=== PATIENT | female | born 1995 | race Hispanic/Latino ===

== ENCOUNTER 2018-02-26 07:20 | Emergency (ER) | payer MEDICAID, OTHER ==
[~2018-02-26 07:20] MED LIST: PNV1TABL62 PO
[2018-02-26 07:41] LABS: APPEARANCE,URINE Clear (CLEAR); BILIRUBIN,URINE Negative (NEGATIVE); COLOR,URINE Yellow (YELLOW); GLUCOSE, URINE (UA) Negative (NEGATIVE); KETONES,URINE Negative (NEGATIVE); LEUKOCYTE ESTERASE ,URINE Trace (NEGATIVE); NITRATE,URINE Negative (NEGATIVE); OCCULT BLOOD,URINE Negative (NEGATIVE); PH,URINE 5.5 (5.0-8.0); PROTEIN,URINE Negative (NEGATIVE); UROBILINOGEN,URINE 0.2 mg/dL (0.2-1.0)
[2018-02-26 07:44] LABS: HCG,QUAL RESULT POSITIVE (NEGATIVE)
[2018-02-26 07:45] LABS: BACTERIA,URINE Rare /HPF (None Seen); RBC,URINE 0-1 /HPF (0-1); SQUAMOUS EPITHELIAL CELL,UR Rare /HPF (0-2); WBC,URINE 0-1 /HPF (0-1)
[2018-02-26 08:19] LABS: BASOPHILS % (AUTO) 0.9 % (0.0-5.0); EOSINOPHILS % (AUTO) 1.4 % (0.0-8.0); HEMATOCRIT 38.3 % (36-48); LYMPHOCYTES % (AUTO) 20.1 % (21.0-51.0); MEAN CORPUSCULAR HEMOGLOBIN 29.3 pg (27.0-33.0); MEAN CORPUSCULAR HGB CONC 33.3 g/dL (32.0-36.0); MEAN CORPUSCULAR VOLUME 88.1 fL (80-100); MONOCYTES % (AUTO) 9.8 % (3.0-13.0); NEUTROPHILS % (AUTO) 67.8 % (40.0-77.0); PLATELET COUNT (AUTO) 216 K/uL (130-400); RED BLOOD CELL COUNT(AUTO) 4.35 MIL/uL (4.00-5.50); RED CELL DISTRIBUTION WIDTH 16.5 % (11.0-15.5); WHITE BLOOD COUNT (AUTO) 6.4 K/uL (4.8-10.8)
[2018-02-26 08:31] LABS: CREATININE 0.7 mg/dL (0.5-1.5); POTASSIUM 3.7 mmol/L (3.5-5.1)
[2018-02-26] MEDS ORDERED: DICYCLOMINE HCL 10 MG/ML 2ML AMP IM ONE (08:55)
[2018-02-26] MEDS ORDERED: FAMOTIDINE 20MG TAB 20 MG TAB ONE (08:55)
[2018-02-26 08:56] LABS: ALBUMIN 3.7 g/dL (3.5-5.0); BILIRUBIN,TOTAL 0.2 mg/dL (0.2-1.0); TOTAL PROTEIN, SERUM 7.4 g/dL (6.0-8.3)
== END 2018-02-26 10:04 | disposition home or self-care (01) ==
LOC: EDH 07:20
DX: O26.891 Other specified pregnancy related conditions, first trimester (principal); R10.13 Epigastric pain; R10.32 Left lower quadrant pain; Z3A.01 Less than 8 weeks gestation of pregnancy
CPT/HCPCS: 36415; 76705; 76801; 80053; 81001; 81025; 83690; 84702; 85025; 86900; 86901; 96372; 99285; J0500

== ENCOUNTER 2018-09-13 05:09 | Observation (INO) | payer MEDICAID ==
[~2018-09-13] VITALS: Ht 165.1 cm; Wt 61.2 kg
[2018-09-13] MEDS ORDERED: LACTATED RINGERS 1000ML 1,000 ML IV PRN (05:30)
[2018-09-13 05:48] LABS: APPEARANCE,URINE Cloudy (CLEAR); BILIRUBIN,URINE Negative (NEGATIVE); COLOR,URINE Yellow (YELLOW); GLUCOSE, URINE (UA) Negative (NEGATIVE); KETONES,URINE Negative (NEGATIVE); LEUKOCYTE ESTERASE ,URINE Large (NEGATIVE); NITRATE,URINE Negative (NEGATIVE); OCCULT BLOOD,URINE Negative (NEGATIVE); PROTEIN,URINE Negative (NEGATIVE)
[2018-09-13 05:56] LABS: AMPHET/METH SCREEN,URINE NEGATIVE (NEGATIVE); BARBITURATE SCREEN, URINE NEGATIVE (NEGATIVE); BENZODIAZEPINES SCREEN,URINE NEGATIVE (NEGATIVE); CANNABINOID SCREEN,URINE NEGATIVE (NEGATIVE); COCAINE SCREEN,URINE NEGATIVE (NEGATIVE); OPIATE SCREEN,URINE NEGATIVE (NEGATIVE); PHENCYCLIDINE SCREEN,URINE NEGATIVE (NEGATIVE)
[2018-09-13 05:58] LABS: BACTERIA,URINE Few /HPF (None Seen); RBC,URINE 0-1 /HPF (0-1)
[2018-09-13] MEDS ORDERED: ONDANSETRON HCL MDV 20ML 2 MG/ML VIAL IVP SCH (06:15)
[2018-09-13] MEDS ORDERED: PROMETHAZINE HCL 25 MG/ML 1ML AMPULE IM SCH (06:15)
[2018-09-13] MEDS ORDERED: ONDANSETRON HCL 4 MG/2 ML VIAL IVP SCH (06:30)
== END 2018-09-13 07:45 | disposition home or self-care (01) ==
LOC: EDH 05:09 → LDH 05:10
PROVIDERS: ADMIT Specialist; ATTEND Specialist
DX: O21.2 Late vomiting of pregnancy (principal); O26.893 Other specified pregnancy related conditions, third trimester; R19.7 Diarrhea, unspecified; R10.9 Unspecified abdominal pain; O99.323 Drug use complicating pregnancy, third trimester; F12.10 Cannabis abuse, uncomplicated; O99.343 Other mental disorders complicating pregnancy, third trimester; F41.9 Anxiety disorder, unspecified; Z87.891 Personal history of nicotine dependence; Z79.899 Other long term (current) drug therapy; Z3A.33 33 weeks gestation of pregnancy
CPT/HCPCS: 80305; 81001; 96361; 96374; 96375; 99285; G0378 ×3; J2405; J2550; J7120 ×2; 96360

== ENCOUNTER 2021-07-29 12:58 | Emergency (ER) | payer MEDICAID, OTHER ==
[~2021-07-29] VITALS: Ht 165.1 cm; Wt 52.2 kg
[2021-07-29] MEDS ORDERED: CEPH500B PO (15:22)
[2021-07-29] MEDS ORDERED: SULF1TAB42 PO (15:22)
[2021-07-29 15:24] VITALS: BP 145/74
== END 2021-07-29 16:11 | disposition home or self-care (01) ==
LOC: EDH 12:58
DX: N61.0 Mastitis without abscess (principal)

== ENCOUNTER 2024-01-13 18:56 | Emergency (ER) | payer OTHER ==
[~2024-01-13] VITALS: Ht 165.1 cm; Wt 52.6 kg
[~2024-01-13 18:56] MED LIST changes: +CEPH500B PO; +SULF1TAB42 PO
[2024-01-13 19:40] LABS: APPEARANCE,URINE CLEAR (CLEAR); BILIRUBIN,URINE NEGATIVE (NEGATIVE); COLOR,URINE LIGHT-YELLOW (YELLOW); GLUCOSE, URINE (UA) NEGATIVE (NEGATIVE); KETONES,URINE NEGATIVE (NEGATIVE); LEUKOCYTE ESTERASE ,URINE NEGATIVE Leu/uL (NEGATIVE); NITRATE,URINE NEGATIVE (NEGATIVE); PROTEIN,URINE NEGATIVE (NEGATIVE); UROBILINOGEN,URINE 0.2 mg/dL (0.2-1.0)
[2024-01-13 19:44] LABS: ADD UA MICROSCOPIC YES
[2024-01-13 19:45] LABS: MUCUS,URINE RARE LPF (None Seen); SQUAMOUS EPITHELIAL CELL,UR RARE /HPF (0-2); WBC,URINE 0-1 /HPF (0-1)
[2024-01-13 19:52] LABS: RAPID GROUP A STREP negative (NEGATIVE)
[2024-01-13 19:54] LABS: SARS-CoV-2, RNA, NAAT NEGATIVE SARS CoV-2 (NEGATIVE)
[2024-01-13 19:59] LABS: INFLUENZA TYPE A Negative For Type A (NEGATIVE); INFLUENZA TYPE B Negative For Type B (NEGATIVE)
[2024-01-13 21:40] LABS: BASOPHILS # (AUTO) 0.03 K/uL (0.00-0.20); BASOPHILS % (AUTO) 0.5 % (0.0-5.0); EOSINOPHILS # (AUTO) 0.06 K/uL (0.00-0.70); EOSINOPHILS % (AUTO) 1.1 % (0.0-8.0); HEMATOCRIT 40.9 % (36-48); IMMATURE GRANULOCYTE ABSOLUTE 0.02 K/uL (0-1); LYMPHOCYTES # (AUTO) 1.6 K/uL (1.0-4.8); LYMPHOCYTES % (AUTO) 27.6 % (21.0-51.0); MEAN CORPUSCULAR HEMOGLOBIN 31.2 pg (27.0-33.0); MEAN CORPUSCULAR HGB CONC 34.7 g/dL (32.0-36.0); MEAN CORPUSCULAR VOLUME 89.9 fL (79-99); MONOCYTES # (AUTO) 0.5 K/uL (0.1-1.0); MONOCYTES % (AUTO) 8.4 % (3.0-13.0); NEUTROPHILS # (AUTO) 3.5 K/uL (1.8-7.7); PLATELET COUNT (AUTO) 198 K/uL (130-400); RED BLOOD CELL COUNT(AUTO) 4.55 MIL/uL (4.00-5.50); RED CELL DISTRIBUTION WIDTH 13.6 % (11.0-15.5); WHITE BLOOD COUNT (AUTO) 5.7 K/uL (4.8-10.8)
[2024-01-13 21:52] LABS: CREATININE 0.9 mg/dL (0.5-1.5); POTASSIUM 3.2 mmol/L (3.5-5.1)
[2024-01-13 21:56] LABS: ALBUMIN 4.2 g/dL (3.5-5.0); BILIRUBIN,TOTAL 0.4 mg/dL (0.2-1.0); TOTAL PROTEIN, SERUM 8.2 g/dL (6.0-8.3)
[2024-01-13] MEDS: POTASSIUM BICARB/CIT AC 25 MEQ TABLET.EFF PO ONE (22:30)
[2024-01-14] MEDS ORDERED: OMEP40CA21 PO (02:18)
[2024-01-14] MEDS ORDERED: ONDA-104 PO (02:18)
[2024-01-14] MEDS ORDERED: IBUP-1493 PO (02:18)
[2024-01-14] MEDS ORDERED: AMOX1TAB16 PO (02:18)
[2024-01-14 02:50] VITALS: BP 128/74; PULSE 88; RESP 18; O2SAT 98
== END 2024-01-14 02:51 | disposition home or self-care (01) ==
LOC: EDH 18:56
DX: K04.7 Periapical abscess without sinus (principal); R10.13 Epigastric pain; Z79.899 Other long term (current) drug therapy; Z20.822 Contact with and (suspected) exposure to COVID-19
CPT/HCPCS: 36415; 80053; 81001; 81025; 83690; 85025; 87635; 87804; 87880

== ENCOUNTER 2024-01-16 16:02 | Emergency (ER) | payer OTHER ==
[~2024-01-16] VITALS: Ht 165.1 cm; Wt 52.6 kg
[~2024-01-16 16:02] MED LIST changes: +AMOX1TAB16 PO; -CEPH500B PO; +IBUP-1493 PO; +OMEP40CA21 PO; +ONDA-104 PO; -SULF1TAB42 PO
[2024-01-16 16:22] VITALS: BP 104/86; PULSE 85; RESP 17; O2SAT 100
[2024-01-16 17:53] LABS: BASOPHILS # (AUTO) 0.03 K/uL (0.00-0.20); BASOPHILS % (AUTO) 0.6 % (0.0-5.0); EOSINOPHILS # (AUTO) 0.02 K/uL (0.00-0.70); EOSINOPHILS % (AUTO) 0.4 % (0.0-8.0); HEMATOCRIT 41.1 % (36-48); IMMATURE GRANULOCYTE ABSOLUTE 0.01 K/uL (0-1); LYMPHOCYTES # (AUTO) 1.6 K/uL (1.0-4.8); LYMPHOCYTES % (AUTO) 31.2 % (21.0-51.0); MEAN CORPUSCULAR HEMOGLOBIN 31.5 pg (27.0-33.0); MEAN CORPUSCULAR HGB CONC 34.3 g/dL (32.0-36.0); MEAN CORPUSCULAR VOLUME 91.7 fL (79-99); MONOCYTES # (AUTO) 0.5 K/uL (0.1-1.0); MONOCYTES % (AUTO) 10.1 % (3.0-13.0); NEUTROPHILS # (AUTO) 2.9 K/uL (1.8-7.7); NEUTROPHILS % (AUTO) 57.5 % (40.0-77.0); PLATELET COUNT (AUTO) 197 K/uL (130-400); RED BLOOD CELL COUNT(AUTO) 4.48 MIL/uL (4.00-5.50); RED CELL DISTRIBUTION WIDTH 13.3 % (11.0-15.5); WHITE BLOOD COUNT (AUTO) 5.1 K/uL (4.8-10.8)
[2024-01-16 18:00] LABS: APPEARANCE,URINE CLEAR (CLEAR); BILIRUBIN,URINE NEGATIVE (NEGATIVE); COLOR,URINE LIGHT-YELLOW (YELLOW); GLUCOSE, URINE (UA) NEGATIVE (NEGATIVE); KETONES,URINE NEGATIVE (NEGATIVE); LEUKOCYTE ESTERASE ,URINE NEGATIVE Leu/uL (NEGATIVE); NITRATE,URINE NEGATIVE (NEGATIVE); OCCULT BLOOD,URINE MODERATE (NEGATIVE); PH,URINE 5.5 (5.0-8.0); PROTEIN,URINE NEGATIVE (NEGATIVE); UROBILINOGEN,URINE 0.2 mg/dL (0.2-1.0)
[2024-01-16 18:01] LABS: ADD UA MICROSCOPIC YES
[2024-01-16 18:05] LABS: CREATININE 0.8 mg/dL (0.5-1.5); POTASSIUM 3.3 mmol/L (3.5-5.1)
[2024-01-16 18:07] LABS: AMPHET/METH SCREEN,URINE NEGATIVE (NEGATIVE); BARBITURATE SCREEN, URINE NEGATIVE (NEGATIVE); BENZODIAZEPINES SCREEN,URINE NEGATIVE (NEGATIVE); CANNABINOID SCREEN,URINE POSITIVE (NEGATIVE); COCAINE SCREEN,URINE NEGATIVE (NEGATIVE); OPIATE SCREEN,URINE NEGATIVE (NEGATIVE); PHENCYCLIDINE SCREEN,URINE NEGATIVE (NEGATIVE)
[2024-01-16 18:09] LABS: ALBUMIN 4.2 g/dL (3.5-5.0); BILIRUBIN,TOTAL 0.3 mg/dL (0.2-1.0)
[2024-01-16 18:12] LABS: MUCUS,URINE RARE LPF (None Seen); SQUAMOUS EPITHELIAL CELL,UR RARE /HPF (0-2)
== END 2024-01-16 20:31 | disposition home or self-care (01) ==
LOC: EDH 16:02
DX: R07.89 Other chest pain (principal); F41.9 Anxiety disorder, unspecified; F12.90 Cannabis use, unspecified, uncomplicated; Z79.899 Other long term (current) drug therapy; Z98.890 Other specified postprocedural states
CPT/HCPCS: 36415; 71045; 80053; 80305; 81001; 84484; 84703; 85025; 93005

== ENCOUNTER 2024-11-26 14:50 | Emergency (ER) | payer OTHER ==
[~2024-11-26] VITALS: Ht 165.1 cm; Wt 68.0 kg
[2024-11-26] MEDS: 0.9%NACL 1000ML 1,000 ML IV ONE (15:53)
[2024-11-26] MEDS: metoCLOPRAmide 10 MG/2 ML VIAL IVP ONE (15:53)
[2024-11-26] MEDS: ketOROlac 15MG/ML VIAL (15MG/ML) IV ONE (15:54)
[2024-11-26] MEDS: MAG/ALUM/SIMETH 30 ML UDCUP PO ONE (15:54)
--- NOTE | 2024-11-26 16:01 | NUR ---
SONO: SONO TECH JUST ARRIVED TO BEDSIDE FOR RUQ SONO
--- NOTE | 2024-11-26 16:13 | NUR ---
TAKING OVER PT CARE AT THIS TIME.
--- NOTE | 2024-11-26 16:28 | HMCIMG ---
ULTRASOUND ABDOMEN LIMITED INDICATION: Abdominal pain; No other relevant information related to this study was provided in patient's history by the ordering service. COMPARISON: None FINDINGS: The liver is normal in size and echogenicity; no focal lesion demonstrated. Main portal vein is patent, and normal direction of vascular flow demonstrated. The common bile duct diameter measures 3.0 mm. No evidence for calculi, sludge or pericholecystic fluid. No sonographic Rosa's sign elicited by the ultrasound metal drill operator. Wall thickness measures 2.0 mm. Visible portions of the pancreas appear normal. The right kidney measures 9.6 x 3.5 x 3.8 cm,and is normal in echogenicity, without evidence for hydronephrosis.No shadowing stones demonstrated. Miniscule echogenic focus demonstrated at the lower pole of the right kidney. No free fluid demonstrated. IMPRESSION: Suspect miniscule nonobstructing right renal stone. Otherwise, no acute process.
[2024-11-26 17:04] LABS: BASOPHILS # (AUTO) 0.03 K/uL (0.00-0.20); BASOPHILS % (AUTO) 0.4 % (0.0-5.0); HEMATOCRIT 35.2 % (36-48); IMMATURE GRANULOCYTE ABSOLUTE 0.03 K/uL (0-1); LYMPHOCYTES # (AUTO) 0.7 K/uL (1.0-4.8); LYMPHOCYTES % (AUTO) 9.4 % (21.0-51.0); MEAN CORPUSCULAR HEMOGLOBIN 29.8 pg (27.0-33.0); MEAN CORPUSCULAR HGB CONC 33.2 g/dL (32.0-36.0); MEAN CORPUSCULAR VOLUME 89.8 fL (79-99); MONOCYTES # (AUTO) 0.3 K/uL (0.1-1.0); MONOCYTES % (AUTO) 3.6 % (3.0-13.0); NEUTROPHILS # (AUTO) 6.7 K/uL (1.8-7.7); NEUTROPHILS % (AUTO) 86.2 % (40.0-77.0); PLATELET COUNT (AUTO) 203 K/uL (130-400); RED BLOOD CELL COUNT(AUTO) 3.92 MIL/uL (4.00-5.50); RED CELL DISTRIBUTION WIDTH 15.4 % (11.0-15.5); WHITE BLOOD COUNT (AUTO) 7.8 K/uL (4.8-10.8)
[2024-11-26 17:15] LABS: CREATININE 0.7 mg/dL (0.5-1.0); POTASSIUM 3.8 mmol/L (3.5-5.1)
[2024-11-26 17:19] LABS: ALBUMIN 3.5 g/dL (3.5-5.0); BILIRUBIN,DIRECT 0.1 mg/dL (0.0-0.3); BILIRUBIN,TOTAL 0.4 mg/dL (0.2-1.0); TOTAL PROTEIN, SERUM 6.8 g/dL (6.0-8.3)
--- NOTE | 2024-11-26 17:37 | NUR ---
URINE SENT AGAIN.
[2024-11-26 17:46] LABS: ADD UA MICROSCOPIC YES; APPEARANCE,URINE CLEAR (CLEAR); BILIRUBIN,URINE NEGATIVE (NEGATIVE); COLOR,URINE YELLOW (YELLOW); GLUCOSE, URINE (UA) NEGATIVE (NEGATIVE); KETONES,URINE 150 mg/dL (NEGATIVE); LEUKOCYTE ESTERASE ,URINE NEGATIVE Leu/uL (NEGATIVE); NITRATE,URINE NEGATIVE (NEGATIVE); OCCULT BLOOD,URINE NEGATIVE (NEGATIVE); PROTEIN,URINE 30 mg/dL (NEGATIVE)
[2024-11-26] MEDS ORDERED: ONDA-243 PO (17:46)
--- NOTE | 2024-11-26 17:48 | ERN ---
General Chief Complaint: Nausea,Vomiting,Diarrhea Stated Complaint: THROWING UP ALOT,DIZZINESS Time Seen by MD: 14:51 History of Present Illness Initial Comments 29-year-old female, otherwise healthy, denies , presents for vomiting and epigastric pain. Patient reports that for the last week or so she has been feeling on and off pains in the epigastric area, she thinks it is more of the right than to the left. Nonradiating. He has had decreased appetite. She has felt bloated. No vomiting or diarrhea before. Last night she drank very heavily, much alcohol. This morning she reports that the pain is worse and she persistently vomits. She reports that she does not think she is simply hung over and is worried that something else is wrong in her abdomen. Allergies: Coded Allergies: No Known Drug Allergies (Unverified Allergy, Unknown, 11/23/16) Home Meds Active Scripts Ondansetron HCl (Ondansetron HCl) 4 Mg Tablet, 4 MG PO TIDP PRN for VOMITING, #20 TAB Prov:KARYN SANDERS MD 01/14/24 Amoxicillin/Potassium Clav (Amox Tr-K Clv 875-125 mg Tab) 875 Mg-125 Mg Tablet, 1 EACH PO BID, #20 TAB Prov:KARYN SANDERS MD 01/14/24 Omeprazole (Omeprazole) 40 Mg Capsule.dr, 40 MG PO DAILY, #30 CAP Prov:KARYN SANDERS MD 01/14/24 Ibuprofen (Motrin/Advil) 800 Mg Tab, 800 MG PO TID, #30 TAB Prov:KARYN SANDERS MD 01/14/24 Reported Medications Pnv with Ca,No.72/Iron/FA ( Vitamin with Low Iron) 1 Each Tablet, 1 EACH PO DAILY, TAB 11/23/16 Past Medical History Past Medical History: No Pertinent History Past Surgical History: None Family History Family History: Negative Social History Social History: Negative, Lives with family Female( History) History: Not Applicable LMP: Nov 21, 2024 ROS Dictation CONSTITUTIONAL: No chills, no fever, no weakness, no diaphoresis, no malaise. HEAD/FACE: No signs of trauma. EENT: No eye pain, no blurred vision, no tearing, no double vision, no ear pain, no ear discharge, no nose pain, no nasal congestion, no throat pain, no throat swelling, no mouth pain. RESPIRATORY: No cough, no orthopnea, no SOB, no stridor, no wheezing. CARDIOVASCULAR: No chest pain, no edema, no palpitations, no syncope. GASTROINTESTINAL/ABDOMINAL: Abdominal pain and vomiting GENITOURINARY: No abnormal discharge, no dysuria, no frequent urination, no hematuria. No complaints of pain in the genitals. MUSCULOSKELETAL: No back pain, no gout, no joint pain, no joint swelling, no muscle pain, no muscle stiffness, no neck pain. INTEGUMENTARY: No change in color, no change in hair/nails, no dryness, no lesion, no lumps, no rash. NEUROLOGICAL/PSYCH: No anxiety, not depressed, no emotional problem, no headache, no numbness, no pre-existing deficit, no history of seizures, no tremors, no weakness. HEMATOLOGIC/LYMPHATIC: Not anemic, no history of blood clots, no apparent bleeding, no bruising, glands not swollen. All Systems Negative, Except as Noted. Physical Exam Physical Exam Dictation VITAL SIGNS: Reviewed. GENERAL APPEARANCE: Alert, oriented x3, no acute distress. HEAD AND FACE: Non-traumatic. EYES: PERRL, pink conjunctivas, eyelid no trauma, anterior chamber clear. EARS: Pinnas intact and no signs of trauma or erythema. Ear canals clear and no discharge. TMs no erythema. NOSE: No discharge, no bleeding. OROPHARYNX: Mouth normal, teeth no caries, tongue pink. Pharynx clear, no erythema. Tonsils no exudates, no abscesses noted. Mucous membrane moist. NECK: Supple, non-tender, no thyromegaly, no masses, no JVD, no bruits. BREAST: Deferred. CHEST: No tenderness, no crepitus, no paradoxical movement, no retractions. LUNGS: Clear, well-ventilated, symmetric, no rales, no wheezing, no rhonchi, no stridor, good breath sounds bilaterally. HEART: Regular rate, regular rhythm, no murmur, no gallops. VASCULAR: No peripheral edema. ABDOMEN: Abdomen is soft nontender nondistended. RECTAL: Deferred. GENITAL: Deferred. NEUROLOGICAL: Normal speech, gross motor function intact, gross sensory function intact. MUSCULOSKELETAL: Neck nontender, full range of motion, back nontender, full range of motion. EXTREMITIES: Nontender, full range of motion. SKIN: Color pink, dry, no turgor, no rash, no lacerations, no abrasions, no co ntusions. LYMPHATICS: Deferred. Results Laboratory and Microbiology Lab and Micro Result Laboratory Tests Test 11/26/24 16:53 White Blood Count 7.8 K/uL (4.8-10.8) Red Blood Count 3.92 MIL/uL (4.00-5.50) L Hemoglobin 11.7 g/dL (12.0-16.0) L Hematocrit 35.2 % (36-48) L Mean Corpuscular Volume 89.8 fL (79-99) Mean Corpuscular Hemoglobin 29.8 pg (27.0-33.0) Mean Corpuscular Hemoglobin Concent 33.2 g/dL (32.0-36.0) Red Cell Distribution Width 15.4 % (11.0-15.5) Platelet Count 203 K/uL (130-400) Mean Platelet Volume 10.3 fL (7.5-10.5) Immature Granulocyte % (Auto) 0.4 % (0-1) Neutrophils (%) (Auto) 86.2 % (40.0-77.0) H Lymphocytes (%) (Auto) 9.4 % (21.0-51.0) L Monocytes (%) (Auto) 3.6 % (3.0-13.0) Eosinophils (%) (Auto) 0.0 % (0.0-8.0) Basophils (%) (Auto) 0.4 % (0.0-5.0) Neutrophils # (Auto) 6.7 K/uL (1.8-7.7) Lymphocytes # (Auto) 0.7 K/uL (1.0-4.8) L Monocytes # (Auto) 0.3 K/uL (0.1-1.0) Eosinophils # (Auto) 0.00 K/uL (0.00-0.70) Basophils # (Auto) 0.03 K/uL (0.00-0.20) Absolute Immature Granulocyte (auto 0.03 K/uL (0-1) Nucleated Red Blood Cells 0.0 % (0.0-0.19) Sodium Level 143 mmol/L (136-145) Potassium Level 3.8 mmol/L (3.5-5.1) Chloride Level 107 mmol/L (101-111) Carbon Dioxide Level 26 mmol/L (21-32) Blood Urea Nitrogen 13 mg/dL (7-18) Creatinine 0.7 mg/dL (0.5-1.0) Glomerular Filtration Rate Calc 121 mL/min (>90) Random Glucose 74 mg/dL (70-105) Total Calcium 8.0 mg/dL (8.5-10.1) L Total Bilirubin 0.4 mg/dL (0.2-1.0) Direct Bilirubin 0.1 mg/dL (0.0-0.3) Aspartate Amino Transf (AST/SGOT) 180 U/L (10-37) H Alanine Aminotransferase (ALT/SGPT) 78 U/L (12-78) Alkaline Phosphatase 54 U/L (50-136) Total Protein 6.8 g/dL (6.0-8.3) Albumin 3.5 g/dL (3.5-5.0) Lipase 19 U/L (16-77) MDM CC: vomiting, abd cramping. Historian: Patient Comorbidities: None Differential diagnosis: Epigastric pain concerning for gastritis, metabolic derangement, biliary disease, gallstones, kidney stone, Acute alcohol intoxication versus being hung over, other. vital signs: Stable, remained stable while in the ER. Labs (independently ordered and interpreted by me ): CBC shows mild anemia but is otherwise normal, BNP normal, liver enzymes show elevated AST otherwise unremarkable, lipase normal. Right upper quadrant ultrasound is unremarkable Per my independent interpretation. No signs of gallstones or cholecystitis. Patient received 1 L normal saline, Toradol, and a GI cocktail here in the ER. She also received 5 mg of Reglan. Re-evaluation: Patient was not vomited since being here. Vital signs are stable. Soft nontender abdomen. Nontoxic in appearance. I have very low suspicion for any life threats or surgical pathology at this time. Suspect the patient is hung over. We will DC to PCP follow up. We will give a prescription for Zofran to use as needed. REASON: Adominal Pain ORDERING PHYSICIAN: LASHAUN MCKEE DO PROCEDURE: [id number] - US ABDOMINAL RUQ\LTD ULTRASOUND ABDOMEN LIMITED INDICATION: Abdominal pain; No other relevant information related to this study was provided in patient's history by the ordering service. COMPARISON: None FINDINGS: The liver is normal in size and echogenicity; no focal lesion demonstrated. Main portal vein is patent, and normal direction of vascular flow demonstrated. The common bile duct diameter measures 3.0 mm. No evidence for calculi, sludge or pericholecystic fluid. No sonographic Rosa's sign elicited by the ultrasound road hogger operator. Wall thickness measures 2.0 mm. Visible portions of the pancreas appear normal. The right kidney measures 9.6 x 3.5 x 3.8 cm,and is normal in echogenicity, without evidence for hydronephrosis.No shadowing stones demonstrated. Miniscule echogenic focus demonstrated at the lower pole of the right kidney. No free fluid demonstrated. IMPRESSION: Suspect miniscule nonobstructing right renal stone. Otherwise, no acute process. ED Course Orders Procedure Category Date Status Time Cbc With Differential LAB 11/26/24 In Process 15:17 ,Urine Test LAB 11/26/24 Logged 15:17 Urinalysis Profile LAB 11/26/24 Logged 15:17 Us Abdominal Ruq\Ltd US 11/26/24 Resulted 15:17 0.9%Nacl 1000ml (Ns PHA 11/26/24 Complete 1000ml) 15:30 Ketorolac PHA 11/26/24 Complete Tromethamine 15mg/Ml 15:30 Mag/Alum/Simeth 30ml PHA 11/26/24 Complete (Maalox Plus 30ml) 15:30 Lipase LAB 11/26/24 Complete 15:17 Basic Metabolic Panel LAB 11/26/24 Complete 15:17 Metoclopramide 10 PHA 11/26/24 Complete Mg/2 Ml Vial (Reglan 1 15:30 Hepatic Function Panel LAB 11/26/24 Complete 15:17 Current Medications Medications (Trade) Dose Ordered Sig/Taina Route PRN Reason Start Time Stop Time Status Last Admin Dose Admin Al Hydroxide/Mg Hydroxide (MAALox PLUS 30ML) 30 ml ONCE ONCE PO 11/26/24 15:30 11/26/24 15:31 DC 11/26/24 15:54 Ketorolac Tromethamine (toRADol) 15 mg ONCE ONCE IV 11/26/24 15:30 11/26/24 15:31 DC 11/26/24 15:54 Metoclopramide HCl (regLAN 10MG IV) 5 mg ONCE ONCE IVP 11/26/24 15:30 11/26/24 15:31 DC 11/26/24 15:53 Sodium Chloride 1,000 ml @ 0 mls/hr ONCE ONCE IV 11/26/24 15:30 11/26/24 15:31 DC 11/26/24 15:53 Vital Signs Date Time Temp Pulse Resp B/P (MAP) Pulse Ox O2 Delivery O2 Flow Rate FiO2 11/26/24 16:20 66 16 108/67 100 Room Air* 0 21 11/26/24 14:57 97.9 88 16 114/70 100 Room Air 0 DX & DISP Disposition: Discharge Departure Impression: Primary Impression: Alcohol use with withdrawal Additional Impressions: Dehydration, Abdominal pain Condition: Stable Scripts Ondansetron (Ondansetron Odt) 4 Mg Tab.rapdis 1 TAB PO Q6HPRN PRN for nausea/vomiting for 2 Days, #6 TAB 0 Refills Prov: LASHAUN MCKEE DO 11/26/24 Additional Instructions: Your symptoms are consistent with alcohol use with withdrawal (hangover). Your lab work (CBC, BMP, liver enzymes, lipase) is stable. The ultrasound of your abdomen does not show any abnormalities. You received IV fluids and antinausea medicines here in the ER. Be sure to drink plenty of liquids. I have prescribed ondansetron dissolvable tabs to prevent vomiting. Use as needed. Try to avoid too much alcohol in the future. You may have indigestion for the next few days due to the alcohol use. You can use [id number] Tums or Maalox as needed. Please return to the emergency department if you have any concerns. Referrals: SELF,REFERRAL (PCP) LASHAUN MCKEE DO Nov 26, 2024 17:48
[2024-11-26 17:49] LABS: BACTERIA,URINE RARE /HPF (None Seen); MUCUS,URINE MANY LPF (None Seen); SQUAMOUS EPITHELIAL CELL,UR FEW /HPF (0-2); WBC,URINE 0-1 /HPF (0-1)
[2024-11-26 17:53] LABS: HCG,QUALITATIVE URINE NEGATIVE (NEGATIVE)
[2024-11-26 18:24] VITALS: BP 98/56; PULSE 92; RESP 18; TEMP 98.5; O2SAT 99
== END 2024-11-26 18:29 | disposition home or self-care (01) ==
LOC: EDH 14:50
DX: F10.939 Alcohol use, unspecified with withdrawal, unspecified (principal); E86.0 Dehydration; R10.13 Epigastric pain; Z79.1 Long term (current) use of non-steroidal anti-inflammatories (NSAID); Z79.899 Other long term (current) drug therapy; Y90.6 Blood alcohol level of 120-199 mg/100 ml
CPT/HCPCS: 99285; 96374; 76705; 96361; 96375; 80076; 80048; 83690; 85025; 81001; 81025; 36415; J7030; J2765; J1885